=== PATIENT | male | born 1975 | race Caucasian/White ===

== ENCOUNTER 2020-09-08 12:04 | Inpatient (IN) | payer BC, SELFPAY ==
[~2020-09-08] VITALS: Ht 177.8 cm; Wt 136.1 kg
--- NOTE | 2020-09-08 12:05 | NUR ---
Patient to ER bed 03 to gown for evaluation. Side rails up.
--- NOTE | 2020-09-08 12:06 | NUR ---
Pt brought by self, A&Ox4, pt presents to ER with redness/ swelling/ discharge/ pain L foot , states taking cephalexin and Bactrim x 6 days but not improving, afebrile, will cont to monitor.
[2020-09-08 12:09] VITALS: BP_SYST 144
--- NOTE | 2020-09-08 12:20 | NUR ---
report received from Malaika GARCIA. Pt arrives from home w/ a 6 day hx of an infection to the LLE. Pt was seen at an urgent care and given PO antibiotics. However, today the pt noticed that the leg became more discolored and weeping more
--- NOTE | 2020-09-08 12:35 | NUR ---
# 22 gauge angiocath placed to left hand. Use of asceptic technique. Opsite placed over site. Blood return noted. Blood for lab drawn from site. Flushed with 10 cc of normal saline. No evidence of infiltration noted. Patient tolerated well.
--- NOTE | 2020-09-08 12:40 | NUR ---
ER at bedside examining patient.
--- NOTE | 2020-09-08 13:10 | NUR ---
MRSA, rapid covid, and cx of the wound collected and sent to lab.
[2020-09-08] MEDS ORDERED: NACL 0.9% 1,000 ML IV ONE (13:15)
[2020-09-08] MEDS ORDERED: VANCOMYCIN HCL 1,000 MG in D5W 250 ML IV ONE (13:15)
[2020-09-08] MEDS ORDERED: VANCOMYCIN HCL 1000 MG/VIAL IV ONE (13:44)
--- NOTE | 2020-09-08 13:50 | NUR ---
Marlenio and NS 1 liter currently infusing per MD order
[2020-09-08 14:02] LABS: BASOPHILS # (AUTO) 0.1 K/uL (0.0-0.2); BASOPHILS % (AUTO) 0.8 % (0.0-2.0); CALCIUM 8.9 mg/dL (8.4-11.0); CREATININE 0.85 mg/dL (0.55-1.30); EOSINOPHILS # (AUTO) 0.2 K/uL (0.0-0.4); EOSINOPHILS % (AUTO) 1.8 % (0.0-4.0); HEMATOCRIT 43.8 % (36-54); HEMOGLOBIN 15.2 g/dL (14.0-18.0); LYMPHOCYTES # (AUTO) 1.8 K/uL (1.0-5.5); LYMPHOCYTES % (AUTO) 19.5 % (20.5-51.5); MEAN CORPUSCULAR HEMOGLOBIN 30 pg (27-31); MEAN CORPUSCULAR HGB CONC 35 % (32-36); MEAN CORPUSCULAR VOLUME 87 fL (79.0-98.0); MONOCYTES # (AUTO) 0.8 K/uL (0.0-1.0); NEUTROPHILS # (AUTO) 6.6 K/uL (1.8-7.7); NEUTROPHILS % (AUTO) 69.9 % (40.0-70.0); PLATELET COUNT (AUTO) 366 K/uL (130-430); POTASSIUM 3.7 mmol/L (3.5-5.1); RED BLOOD CELL COUNT(AUTO) 5.05 MIL/uL (4.2-6.2); RED CELL DISTRIBUTION WIDTH 14.1 % (9.0-15.0); WHITE BLOOD COUNT (AUTO) 9.4 K/uL (4.8-10.8)
[2020-09-08 14:09] LABS: ALBUMIN 2.7 g/dL (3.4-4.8); INR 0.9 (0.80-1.20); TOTAL BILIRUBIN 0.6 mg/dL (0.0-1.0)
[2020-09-08] MEDS ORDERED: CEPH250C PO (14:56)
[2020-09-08] MEDS ORDERED: SULF1TAB47 PO (14:56)
--- NOTE | 2020-09-08 14:56 | NUR ---
Medication reconciliation completed with information provided by the pt. Any prior medication reconciliation on file was reviewed and corrected.
[2020-09-08] MEDS ORDERED: MORPHINE 2 MG/ML INJ. SYRINGE IVP PRN ×2 (15:30→16:45)
--- NOTE | 2020-09-08 15:33 | NUR ---
called for a Med Surg bed.
--- NOTE | 2020-09-08 15:46 | NUR ---
Patient will be admitted to care of Dr. Estrada/Pina. Admitted to med surg unit. Will go to room 106-a. Belongings list completed. Complete and up to date summary report printed. SBAR report to be given at bedside with opportunity for questions.
--- NOTE | 2020-09-08 16:05 | NUR ---
ADMISSION: The patient, MADALYN MONTANEZ, 45 y/o, M admitted by NABILA SEARS DO, was given written information regarding hospital policies, unit procedures and contact persons. Valuables were checked. Patient in stable condition. Will monitor.
[2020-09-08 16:09] VITALS: BP_SYST 146
[2020-09-08 16:23] VITALS: BP_SYST 146
--- NOTE | 2020-09-08 16:24 | NUR ---
CONSULTATION PAGED/CALLED Reason for Consultation: [] CELLULITIS Person Who was Notified: [] CANDIDO Consulting Physician: [] DR EMMANUEL [employer] Laborer Specialty: [] ID Ordering Physician: [] DR SEARS/DR BARROS
[2020-09-08] MEDS ORDERED: MAGNESIUM SULFATE 50 ML IV PRN (16:45)
[2020-09-08] MEDS ORDERED: LORazepam 2 MG/ML VIAL IVP PRN (16:45)
[2020-09-08] MEDS ORDERED: ONDANSETRON HCL 4 MG/2 ML VIAL IVP PRN (16:45)
[2020-09-08] MEDS ORDERED: MORPHINE 4 MG INJ. 4 MG/ML VIAL IVP PRN (16:45)
[2020-09-08] MEDS ORDERED: POTASSIUM CHLORIDE 40 MEQ, LIDOCAINE JECT 2% PF 100 MG 50 MG in NS 250 ML IV PRN (16:45)
[2020-09-08] MEDS ORDERED: NALOXONE HCL 0.4 MG/ML AMP (NARCAN) IVP PRN (16:45)
[2020-09-08] MEDS: NACL 0.9% 1,000 ML IV SCH (16:50)
[2020-09-08 17:48] LABS: FREE T4 (FREE THYROXINE) 1.2 ng/dl (0.8-1.5); THYROID STIMULATING HORMONE 3.12 uIu/mL (0.36-3.74)
[2020-09-08 17:54] LABS: BILIRUBIN,URINE NEGATIVE (NEGATIVE); BLOOD, URINE NEGATIVE (NEGATIVE); CLARITY/URINE CLEAR (CLEAR); COLOR,URINE YELLOW (YELLOW); GLUCOSE,URINE NEGATIVE (NEGATIVE); KETONES,URINE NEGATIVE (NEGATIVE); LEUKOCYTE ESTERASE ,URINE NEGATIVE (NEGATIVE); NITRITE, URINE NEGATIVE (NEGATIVE); PROTEIN URINE NEGATIVE (NEGATIVE); UROBILINOGEN,URINE 0.2 (0.2-1.0)
[2020-09-08 18:11] LABS: BARBITURATE, URINE NEGATIVE (NEG <=200); BENZODIAZEPINE, URINE POSITIVE (NEG <=150); CANNABINOID, URINE POSITIVE (NEG <=50); OPIATE, URINE NEGATIVE (NEG <=100); PHENCYCLIDINE SCREEN,URINE NEGATIVE (NEG <=25); UR TRICYCLIC ANTIDEPRESSANTS NEGATIVE (NEG <=300); URINE OXYCODONE SCREEN NEGATIVE (NEG <=100); URINE PROPOXYPHENE SCREEN NEGATIVE (NEG <=300)
[2020-09-08 18:12] LABS: COCAINE, URINE NEGATIVE (NEG <=150); METHAMPHETAMINES SCREEN,URINE NEGATIVE (NEG <=500); URINE AMPHETAMINE NEGATIVE (NEG <=500); URINE METHADONE NEGATIVE (NEG <=200)
--- NOTE | 2020-09-08 18:30 | NUR ---
CLOSING NOTE PATIENT IS RESTING IN BED. ON ROOM AIR AND TOLERATING WELL WITH NO SIGNS OF SHORTNESS OF BREATH NOTED. IV IS PATENT, INFUSING FLUIDS ORDERED. NO COMPLAINTS OF PAIN OR DISCOMFORT. BED LOCKED AND IN LOWEST POSITION. CALL LIGHT WITHIN REACH. LEFT LEG IS RAISED ON 2 PILLOWS. WILL ENDORSE TO NIGHT NURSE.
--- NOTE | 2020-09-08 19:15 | NUR ---
REPORT RECEIVED FROM DAY SHIFT NURSE. PT IS RESTING COMFORTABLY IN BED. NO C/O PAIN OR DISCOMFORT. IVF IS INFUSING WELL IN LH. FALL AND SAFETY PRECAUTIONS ARE IN PLACE.
[2020-09-08 20:00] VITALS: BP_SYST 136
[2020-09-08] MEDS: VANCOMYCIN HCL 1,500 MG in NS 250 ML IV SCH (20:15)
[2020-09-09 02:51] VITALS: BP_SYST 131
[2020-09-09] MEDS: VANCOMYCIN HCL 1,500 MG in NS 250 ML IV SCH ×3 (03:24→20:19)
[2020-09-09] MEDS: NACL 0.9% 1,000 ML IV SCH ×3 (06:10→22:45)
--- NOTE | 2020-09-09 06:28 | NUR ---
PT IS AWAKE AND RESTING COMFORTABLY IN BED. LLE IS ELEVATED ON A PILLOW. ALL PT'S NEEDS WERE ATTENDED TO. WILL ENDORSE TO DAY SHIFT NURSE.
--- NOTE | 2020-09-09 06:30 | NUR ---
Nutrition Update Virgilio Scale 18 noted. Pt admitted for Cellulitis Diet: Regular BMI: 43 kg/m2 RD to follow per nutrition care standards.
--- NOTE | 2020-09-09 07:22 | NUR ---
OPENING NOTE Patient resting in the bed. No acute distress. AAO x 4. Denied of pain. Skin warm and dry to touch. IV intact to left hand, no redness, no swelling, no drainage. On NS at 100ml/hr, infusing well. Discussed the safety issue, use call light when needs help, and plan of care, verbally understanding. Safety measure maintained. Call light within reached. Bed locked in low position, side rails up.Will continue to monitor.
[2020-09-09 07:45] VITALS: BP_SYST 135
[2020-09-09 08:05] LABS: BASOPHILS % (AUTO) 0.4 % (0.0-2.0); EOSINOPHILS # (AUTO) 0.2 K/uL (0.0-0.4); HEMATOCRIT 38.1 % (36-54); HEMOGLOBIN 13.3 g/dL (14.0-18.0); LYMPHOCYTES # (AUTO) 1.7 K/uL (1.0-5.5); LYMPHOCYTES % (AUTO) 21.8 % (20.5-51.5); MEAN CORPUSCULAR HEMOGLOBIN 30 pg (27-31); MEAN CORPUSCULAR HGB CONC 35 % (32-36); MEAN CORPUSCULAR VOLUME 87 fL (79.0-98.0); MONOCYTES # (AUTO) 0.5 K/uL (0.0-1.0); MONOCYTES % (AUTO) 6.5 % (1.7-9.3); NEUTROPHILS # (AUTO) 5.4 K/uL (1.8-7.7); NEUTROPHILS % (AUTO) 69.3 % (40.0-70.0); PLATELET COUNT (AUTO) 319 K/uL (130-430); RED BLOOD CELL COUNT(AUTO) 4.39 MIL/uL (4.2-6.2); RED CELL DISTRIBUTION WIDTH 14.2 % (9.0-15.0); WHITE BLOOD COUNT (AUTO) 7.9 K/uL (4.8-10.8)
[2020-09-09 08:19] LABS: ALBUMIN 2.4 g/dL (3.4-4.8); CALCIUM 8.2 mg/dL (8.4-11.0); CREATININE 0.9 mg/dL (0.55-1.30); PHOSPHORUS 3.2 mg/dL (2.7-4.5); POTASSIUM 4.5 mmol/L (3.5-5.1); TOTAL BILIRUBIN 0.7 mg/dL (0.0-1.0)
[2020-09-09] MEDS: ENOXAPARIN SODIUM 40 MG/0.4 ML SYRINGE SUBCUT SCH (09:33)
--- NOTE | 2020-09-09 09:49 | NUR ---
SALMA RENTERIA Received call from Dr. Knapp to update the patient's condition. Described the wound size, color and how it looks like to left lower extremity. Per Dr. Knapp, he will order IV antibiotic and keep the leg elevated with pillow. Patient informed, verbally understanding. Left lower extremity elevated with pillow at this time.
[2020-09-09] MEDS: AMPICILLIN SODIUM/SULBACTAM NA 3 GM in NS 100 ML IV SCH ×3 (11:17→23:15)
[2020-09-09 11:29] VITALS: BP_SYST 134
--- NOTE | 2020-09-09 11:33 | NUR ---
MORPHINE GIVEN Patient c/o headache 08/01. Morphine 2mg IVP given as ordered. No acute distress. Safety measure maintained. Call light within reached. Continue to monitor.
[2020-09-09] MEDS ORDERED: NALOXONE HCL 0.4 MG/ML AMP (NARCAN) IVP PRN (12:45)
[2020-09-09] MEDS ORDERED: HYDROcodone/ACETAMIN 5-325 MG TAB (NORCO/ VICODIN) PO PRN (12:45)
--- NOTE | 2020-09-09 12:48 | NUR ---
SEEN AND EXAMINED BY NABILA DIXON.
--- NOTE | 2020-09-09 14:35 | NUR ---
WOUND EVALUATION: Late note for 09/09/2020 at 1435 secondary to patient care. Wound Consult received from Dr. Heller. Thank you, Dr. Heller, for the consult. Patient received in a [place] Bed with an Isoflex MARSHALL mattress, awake, alert, and oriented. Patient is able to turn in bed and ambulate independently. Virgilio Score is an 18. Past Medical History: Lymphoma 2014 (remission x 6 years), Obesity, Lymph Node Resection. Recent Labs: WBC 7.9, RBC 4.39, hemoglobin 13.3, hematocrit 38.1, glucose 138, calcium 8.2, AST 53, ALT 88, albumin 2.4, PTT 25.6. Microbiology: Blood culture results x2 in progress. Intrinsic factors that delay wound healing: Hypoalbuminemia. Extrinsic factors that delay wound healing: Decreased mobility. Wound Assessment: 1. Left Lower Extremity, Inferior to Knee: Cellulitis, present on admission. Extremity has erythema (receded from initial marking on leg), calor, 3+ pitting edema. Foot has mild edema. No odor, no drainage, no weeping. Recommend: No dressings needed. Continue monitor site every shift. Elevate extremity above heart as tolerated. Encourage 30 ankle pumps every hour while awake. 2. Left Dorsal Foot near MTP and DIP Joints: Large closed bulla with purple and black discoloration, present on admission. No odor, no drainage. 3. Left Medial Foot/Ankle: Large closed bulla with black and yellow discoloration, present on admission. No odor, no drainage. Recommend: No dressings needed. Continue monitor site every shift. Elevate extremity above heart as tolerated. Encourage 30 ankle pumps every hour while awake. 4. Left Lateral Foot/Ankle: Large closed bulla with black discoloration, present on admission. No odor, no drainage. Recommend: No dressings needed. Continue to monitor site closely. 5. Left Mid Medial Calf: Open bulla, present on admission. Wound bed has 20% yellow tissue, 80% red tissue. No odor, no drainage. Periwound intact. Bulla measures 2.0 cm x 4.7 cm. Recommend: Cleanse wound with normal saline. Apply sure prep to periwound. Apply Hydrogel to wound bed. Also recommend: Encourage and assist patient as needed with repositioning every 2 hours with pillow support and off-load pressure areas with pillows for pressure re-distribution. Encourage 30 ankle pumps every hour while awake. Perform skin care and monitor skin integrity Q shift. Addendum: 09/10/20 at 1329 by Khang Ardon RN Error, Site 5 should read as: 5. Left Mid Medial Calf: Open bulla, present on admission. Wound bed has 20% yellow tissue, 80% red tissue. No odor, no drainage. Periwound intact. Bulla measures 2.0 cm x 4.7 cm. Recommend: Cleanse wound with normal saline. Apply sure prep to periwound. Apply Hydrogel to wound bed.Cover site with foam dressing. Perform site care daily and prn for dressing soiling or dislodgment.
--- NOTE | 2020-09-09 14:40 | NUR ---
NORCO GIVEN Patient c/o headache 08/01, [place] 5/325mg 1 tab given as ordered. No acute distress. Safety measure maintained. Call light within reached. Bed locked in low position, side rails up. Continue to monitor.
[2020-09-09 15:18] VITALS: BP_SYST 128
--- NOTE | 2020-09-09 18:57 | NUR ---
CLOSING NOTE Patient resting in the bed. No acute distress. PRN pain med given as needed as ordered. Skin warm and dry to touch. IV intact to left hand, no redness, no swelling, no drainage. On NS at 100ml/hr, infusing well. All needs met. Safety measure maintained. Call light within reached. Bed locked in low position, side rails up. Will endorse to night nurse.
--- NOTE | 2020-09-09 19:20 | NUR ---
ULTRASOUND US TECH AT BEDSIDE FOR ABDOMINAL ULTRASOUND.
--- NOTE | 2020-09-09 20:19 | NUR ---
ATB PATIENT DUE ANTIBIOTIC INFUSING. IV LINE INTACT AND PATENT. VITAL SIGNS STABLE.
[2020-09-09 20:21] VITALS: BP_SYST 132
--- NOTE | 2020-09-09 23:15 | NUR ---
ATB PATIENT DUE ANTIBIOTIC INFUSING. IV LINE INTACT NO REDNESS/SWELLING NOTED.
[2020-09-10 01:08] VITALS: BP_SYST 126
--- NOTE | 2020-09-10 02:47 | NUR ---
LETICIA HARRIS SPOKE WITH [facility] REGARDING VANCO TROUGH RESULT 16.6. OKAYED TO GIVE 04AM DOSE OF VANCOMYCIN.
[2020-09-10] MEDS: VANCOMYCIN HCL 1,500 MG in NS 250 ML IV SCH ×3 (03:30→19:47)
[2020-09-10] MEDS: AMPICILLIN SODIUM/SULBACTAM NA 3 GM in NS 100 ML IV SCH ×4 (05:57→23:38)
--- NOTE | 2020-09-10 05:57 | NUR ---
ATB PATIENT DUE ANTIBIOTIC INFUSING IV LINE INTACT AND PATENT. NO C/O PAIN.
--- NOTE | 2020-09-10 06:33 | NUR ---
CLOSING NOTES PATIENT NEEDS ATTENDED. PATIENT AWAKE WATCHING TV.
[2020-09-10 06:34] LABS: BASOPHILS % (AUTO) 0.4 % (0.0-2.0); EOSINOPHILS # (AUTO) 0.2 K/uL (0.0-0.4); EOSINOPHILS % (AUTO) 2.7 % (0.0-4.0); HEMATOCRIT 39.9 % (36-54); HEMOGLOBIN 13.8 g/dL (14.0-18.0); LYMPHOCYTES # (AUTO) 1.9 K/uL (1.0-5.5); LYMPHOCYTES % (AUTO) 24.9 % (20.5-51.5); MEAN CORPUSCULAR HEMOGLOBIN 30 pg (27-31); MEAN CORPUSCULAR HGB CONC 35 % (32-36); MEAN CORPUSCULAR VOLUME 86 fL (79.0-98.0); MONOCYTES # (AUTO) 0.4 K/uL (0.0-1.0); MONOCYTES % (AUTO) 5.2 % (1.7-9.3); NEUTROPHILS # (AUTO) 5.1 K/uL (1.8-7.7); NEUTROPHILS % (AUTO) 66.8 % (40.0-70.0); PLATELET COUNT (AUTO) 311 K/uL (130-430); RED BLOOD CELL COUNT(AUTO) 4.65 MIL/uL (4.2-6.2); RED CELL DISTRIBUTION WIDTH 14.4 % (9.0-15.0); WHITE BLOOD COUNT (AUTO) 7.7 K/uL (4.8-10.8)
[2020-09-10 07:01] LABS: ALBUMIN 2.4 g/dL (3.4-4.8); CALCIUM 8.5 mg/dL (8.4-11.0); CREATININE 0.72 mg/dL (0.55-1.30); PHOSPHORUS 3.9 mg/dL (2.7-4.5); POTASSIUM 4.2 mmol/L (3.5-5.1); TOTAL BILIRUBIN 0.7 mg/dL (0.0-1.0)
--- NOTE | 2020-09-10 07:36 | NUR ---
OPENING NOTE RECEIVED REPORT FROM NIGHT NURSE. PATIENT IS AA/O X 4. ON ROOM AIR AND TOLERATING WELL WITH NO SIGNS OF SHORTNESS OF BREATH NOTED. IV IS PATENT, INFUSING FLUIDS ORDERED. NO COMPLAINTS OF PAIN OR DISCOMFORT. BED LOCKED AND IN LOWEST POSITION. CALL LIGHT WITHIN REACH. LEFT LEG IS RAISED WITH PILLOWS. WILL CONTINUE TO MONITOR.
[2020-09-10 08:00] VITALS: BP_SYST 136
[2020-09-10] MEDS: ENOXAPARIN SODIUM 40 MG/0.4 ML SYRINGE SUBCUT SCH (08:02)
[2020-09-10] MEDS: NACL 0.9% 1,000 ML IV SCH ×2 (08:05→17:23)
[2020-09-10 11:22] VITALS: BP_SYST 145
--- NOTE | 2020-09-10 12:38 | NUR ---
Dietitian Recommendations *Recommend: Cardiac CCHO diet, Bud BID. Please see Nutritional Assessment for details. EDGAR LANDAVERDE
[2020-09-10 15:56] VITALS: BP_SYST 128
--- NOTE | 2020-09-10 19:47 | NUR ---
ATB PATIENT DUE ANTIBIOTIC INFUSING. IV LINE INTACT AND PATENT.
[2020-09-10 20:51] VITALS: BP_SYST 132
--- NOTE | 2020-09-10 20:51 | NUR ---
VITALS PATIENT VITAL SIGNS STABLE. NO C/O PAIN. LEFT LEG KEPT ELEVATED ON A PILLOW
--- NOTE | 2020-09-10 23:38 | NUR ---
ATB PATIENT DUE ANTIBIOTIC INFUSING. IV LINE INTACT AND PATENT. NO C/O PAIN.
[2020-09-10 23:57] VITALS: BP_SYST 139
--- NOTE | 2020-09-11 01:40 | NUR ---
ROUNDS PATIENT RESTING IN BED. NO DISTRESS NOTED. VITAL SIGNS STABLE.
[2020-09-11] MEDS: VANCOMYCIN HCL 1,500 MG in NS 250 ML IV SCH (03:22)
--- NOTE | 2020-09-11 03:22 | NUR ---
ATB PATIENT DUE ANTIBIOTIC INFUSING. IV LINE NO REDNESS OR SWELLING NOTED.
[2020-09-11] MEDS: NACL 0.9% 1,000 ML IV SCH (03:23)
[2020-09-11] MEDS: AMPICILLIN SODIUM/SULBACTAM NA 3 GM in NS 100 ML IV SCH (05:20)
--- NOTE | 2020-09-11 05:20 | NUR ---
ATB PATIENT DUE ANTIBIOTIC INFUSING. IV LINE INTACT AND PATENT
--- NOTE | 2020-09-11 06:26 | NUR ---
CLOSING NOTES PATIENT AWAKE IN BED WATCHING TV. BREATHING UNLABORED ON ROOM AIR. IVF INFUSING WITH IV LINE INTACT AND PATENT.
[2020-09-11 06:43] LABS: BASOPHILS % (AUTO) 0.5 % (0.0-2.0); EOSINOPHILS # (AUTO) 0.2 K/uL (0.0-0.4); HEMATOCRIT 38.8 % (36-54); HEMOGLOBIN 13.6 g/dL (14.0-18.0); LYMPHOCYTES # (AUTO) 2.1 K/uL (1.0-5.5); LYMPHOCYTES % (AUTO) 25.6 % (20.5-51.5); MEAN CORPUSCULAR HEMOGLOBIN 30 pg (27-31); MEAN CORPUSCULAR HGB CONC 35 % (32-36); MEAN CORPUSCULAR VOLUME 86 fL (79.0-98.0); MONOCYTES # (AUTO) 0.5 K/uL (0.0-1.0); MONOCYTES % (AUTO) 5.5 % (1.7-9.3); NEUTROPHILS # (AUTO) 5.5 K/uL (1.8-7.7); NEUTROPHILS % (AUTO) 66.4 % (40.0-70.0); PLATELET COUNT (AUTO) 299 K/uL (130-430); RED BLOOD CELL COUNT(AUTO) 4.53 MIL/uL (4.2-6.2); RED CELL DISTRIBUTION WIDTH 14.1 % (9.0-15.0); WHITE BLOOD COUNT (AUTO) 8.2 K/uL (4.8-10.8)
[2020-09-11 07:02] LABS: ALBUMIN 2.5 g/dL (3.4-4.8); CALCIUM 8.5 mg/dL (8.4-11.0); CREATININE 0.74 mg/dL (0.55-1.30); PHOSPHORUS 3.9 mg/dL (2.7-4.5); TOTAL BILIRUBIN 0.8 mg/dL (0.0-1.0)
--- NOTE | 2020-09-11 07:15 | NUR ---
Nutrition Consult for LLE cellulitis w/ open blister/closed blisters received 09/10/20 1313. Initial Nutrition Assessment done 09/10/20, please see note for details. RD reviewed chart, MD notes, labs, event lighting specialist note and care trends this am. Dietitian recommendation to add Bud for improved skin. RD to follow per nutrition care standards. [facility], RD
[2020-09-11 08:00] VITALS: BP_SYST 129
[2020-09-11] MEDS ORDERED: DOXY100T2 PO (08:00)
[2020-09-11] MEDS ORDERED: AMOX-426 PO (08:00)
[2020-09-11] MEDS: ENOXAPARIN SODIUM 40 MG/0.4 ML SYRINGE SUBCUT SCH (08:06)
[2020-09-11 08:28] VITALS: BP_SYST 129
--- NOTE | 2020-09-11 09:05 | NUR ---
D/C Patient Patient given medication reconciliation form and D/C instructions. Exit Care provided. Patient verbalized understanding. MD discussed with patient the results and treatment provided. Ambulatory with steady gait for discharge to home. Patient in stable condition, ID band removed. IV catheter removed, intact and dressing applied, no active bleeding. Patient educated on pain management. All belongings sent with patient. Wound care and pictures completed.
== END 2020-09-11 09:05 | disposition home or self-care (01) | DRG 602 ==
LOC: SED 12:04 → SMU 15:24
DX: L03.116 Cellulitis of left lower limb (principal); E43 Unspecified severe protein-calorie malnutrition; Z68.41 Body mass index [BMI] 40.0-44.9, adult; E66.9 Obesity, unspecified; I10 Essential (primary) hypertension; E86.0 Dehydration; R74.01 Elevation of levels of liver transaminase levels; F12.90 Cannabis use, unspecified, uncomplicated; Z85.72 Personal history of non-Hodgkin lymphomas
CPT/HCPCS: 36415; 71045; 73590-TC; 76700-TC; 80053; 80061; 80202; 80307; 81003; 83036; 83605; 83735; 83874; 83880; 84100; 84439; 84443; 84484; 85025; 85610-TC; 85730-TC; 87040-TC; 87070-TC; 87081; 87086; 93005; 93923; 93970; 96365; 99285; J0295; J1650; J2270; J3370; J7050